=== PATIENT | female | born 1980 | race Caucasian/White ===

== ENCOUNTER → 2018-01-18 | Outpatient (CLI) | payer BC ==
[~2018-01-18] VITALS: Ht 170.2 cm; Wt 84.1 kg
[2018-01-18] VITALS (13 sets, daily range): BP systolic 93–121; BP diastolic 55–78
[~2018-01-18] MED LIST: DIFLUCAN100 M1 PO
== END ==
LOC: AMSURD 13:41
DX: C50.811 Malignant neoplasm of overlapping sites of right female breast (principal); Z17.1 Estrogen receptor negative status [ER-]
CPT/HCPCS: J7050